=== PATIENT | female | born 1935 | race Caucasian/White ===

== ENCOUNTER → 2016-07-05 | Outpatient (REF) | payer MEDICARE ==
[~2016-07-05] MED LIST: ACET1TAB43 PO; CA C1TAB74; CETI10TA20 PO; DOCU-243; GBPN300C; IRBE150T50; METF500T; NF-LISIN40 PO; PIOG15TA3; POLY17PO6 PO; SIMV40TA
== END ==
LOC: LAB 08:34
PROVIDERS: ATTEND Family Medicine
DX: N18.3 Chronic kidney disease, stage 3 (moderate) (principal)
CPT/HCPCS: 84100